=== PATIENT | female | born 1980 | race Caucasian/White ===

== ENCOUNTER 2017-01-11 17:54 | Emergency (ER) | payer MEDICAID ==
[2010-09-09 05:46] VITALS: BMI 37.6
== END 2017-01-11 19:37 | disposition home or self-care (01) ==
LOC: D.ER 17:54
DX: S20.212A Contusion of left front wall of thorax, initial encounter (principal); X58.XXXA Exposure to other specified factors, initial encounter; Y93.89 Activity, other specified; Y92.89 Other specified places as the place of occurrence of the external cause

== ENCOUNTER 2019-12-02 20:30 | Emergency (ER) | payer MEDICAID ==
[~2019-12-02] VITALS: Ht 160 cm; Wt 59.1 kg
[2019-12-02 20:44] VITALS: BP 127/83; Ht 160 cm; Wt 59.1 kg
== END 2019-12-02 22:06 | disposition home or self-care (01) ==
LOC: D.ER 20:30
DX: S52.122A Displaced fracture of head of left radius, initial encounter for closed fracture (principal); W19.XXXA Unspecified fall, initial encounter; Y93.9 Activity, unspecified; Y92.9 Unspecified place or not applicable